=== PATIENT | male | born 1960 | race African-American/Black ===

== ENCOUNTER 2018-12-02 19:51 | Emergency (ER) | payer MEDICARE, OTHER ==
[~2018-12-02] VITALS: Ht 167.6 cm; Wt 75.0 kg
[~2018-12-02 19:51] MED LIST: OXYC-158 PO
[2018-12-02 20:23] LABS: BASOPHILS % (AUTO) 0.6 % (0.0-2.0); EOSINOPHILS % (AUTO) 0.3 % (1.0-6.0); HEMATOCRIT 37.3 % (41-53); HEMOGLOBIN 12.1 g/dL (13.5-17.5); LYMPHOCYTES # (AUTO) 1.9 K/uL (1.0-4.8); LYMPHOCYTES % (AUTO) 22.5 % (22.0-44.0); MEAN CORPUSCULAR HEMOGLOBIN 28.4 pg (26.0-34.0); MEAN CORPUSCULAR HGB CONC 32.5 G/dL (31.0-37.0); MEAN CORPUSCULAR VOLUME 88 fL (80-100); MONOCYTES # (AUTO) 0.4 K/uL (0.1-1.0); MONOCYTES % (AUTO) 5.3 % (2.0-9.0); NEUTROPHILS % (AUTO) 71.3 % (40.0-70.0); PLATELET COUNT (AUTO) 410 K/uL (150-450); RED BLOOD CELL COUNT(AUTO) 4.26 MIL/uL (4.50-5.90); RED CELL DISTRIBUTION WIDTH 13.8 % (11.5-14.5)
[2018-12-02 20:33] LABS: ANION GAP 10 mmol/L (8-16); CALCIUM, TOTAL 9.8 mg/dL (8.8-10.5); CARBON DIOXIDE 26 mmol/L (22-29); CHLORIDE 101 mmol/L (98-107); CREATININE 1.52 mg/dL (0.60-1.30); GLOMERULAR FILTR. RATE CALC 57 mL/min (>60); GLUCOSE,RANDOM 100 mg/dL (70-110); POTASSIUM 3.5 mmol/L (3.5-5.1); SODIUM SERUM 137 mmol/L (136-145); UREA NITROGEN, BLOOD 12 mg/dL (7-18)
[2018-12-02] MEDS ORDERED: DiphenhydrAMINE HCL 50 MG/ML VIAL IM STA (20:33)
[2018-12-02 20:41] LABS: GLUCOSE,POINT OF CARE 93 MG/DL (70-110)
[2018-12-02 20:43] LABS: INR 0.9 (0.9-1.1); PROTHROMBIN TIME 9.7 SEC (9.4-11.6)
[2018-12-02 20:45] LABS: APPEARANCE,URINE CLEAR (CLEAR); BILIRUBIN,URINE NEGATIVE (NEGATIVE); GLUCOSE, URINE (UA) NEGATIVE (NEGATIVE); KETONES,URINE NEGATIVE (NEGATIVE); LEUKOCYTE ESTERASE ,URINE NEGATIVE (NEGATIVE); NITRATE,URINE NEGATIVE (NEGATIVE); OCCULT BLOOD,URINE NEGATIVE (NEGATIVE); PROTEIN,URINE NEGATIVE (NEGATIVE); UROBILINOGEN,URINE 0.2 mg/dL (<=1.0)
[2018-12-02] MEDS ORDERED: HALOPERIDOL LACTATE 5 MG/ML VIAL IM ONE (20:45)
[2018-12-02 20:47] LABS: SALICYLATE < 2.8 mg/dL (2.8-20.0)
[2018-12-02 20:52] LABS: AMPHET/METH SCREEN,URINE NEGATIVE (NEGATIVE); BARBITURATE SCREEN, URINE NEGATIVE (NEGATIVE); BENZODIAZEPINES SCREEN,URINE NEGATIVE (NEGATIVE); CANNABINOID SCREEN,URINE NEGATIVE (NEGATIVE); COCAINE SCREEN,URINE POSITIVE (NEGATIVE); METHADONE SCREEN, URINE POSITIVE (NEGATIVE); OPIATE SCREEN,URINE NEGATIVE (NEGATIVE); PHENCYCLIDINE SCREEN,URINE NEGATIVE (NEGATIVE)
[2018-12-02 20:56] LABS: LIPASE 216 U/L (73-393)
[2018-12-02 20:59] LABS: ALANINE AMINOTRANSFERASE 22 U/L (12-78); ALBUMIN 4.2 g/dL (3.4-5.0); ALKALINE PHOSPHATASE 102 U/L (46-116); ASPARTATE AMINOTRANSFERASE 27 U/L (15-37); BILIRUBIN,TOTAL 0.4 mg/dL (0.1-1.0); CREATINE KINASE, TOTAL ONLY 200 U/L (39-308); TOTAL PROTEIN, SERUM 8.3 g/dL (6.4-8.2)
[2018-12-02 21:10] LABS: TROPONIN I < 0.02 ng/mL (0.00-0.05)
[2018-12-02 21:13] LABS: LACTIC ACID 3.1 mmol/L (0.4-2.0)
[2018-12-02 21:24] LABS: AMMONIA < 10 umol/L (11-32)
[2018-12-02 21:28] LABS: ACETAMINOPHEN < 2 mcg/mL (10-30)
[2018-12-02] MEDS ORDERED: LORazepam 2 MG/ML VIAL IM ONE (21:30)
[2018-12-02] MEDS ORDERED: SODIUM CHLORIDE 0.9% 1,000 ML IV ONE ×2 (21:30→22:30)
[2018-12-02] MEDS ORDERED: LORazepam 2 MG/ML VIAL IVP ONE (21:45)
[2018-12-02] MEDS ORDERED: PERTUSS(ACELL),DIPH,TET VAC/PF 0.5 ML VIAL IM ONE (22:30)
[2018-12-03 03:52] VITALS: BP 140/83
== END 2018-12-03 04:56 | disposition home or self-care (01) ==
LOC: EMS 19:53
DX: R41.82 Altered mental status, unspecified (principal); F11.10 Opioid abuse, uncomplicated; F17.210 Nicotine dependence, cigarettes, uncomplicated
CPT/HCPCS: 36415; 70450; 70486; 71045; 72125; 80053; 80307; 81003; 82140; 82550; 82962; 83605; 83690; 84484; 85025; 85610; 85730; 90471; 90715; 93005; 96361; 96372; 96374; 99291; 99406; G0480; J1200; J1630; J2060; J7030; G0481